=== PATIENT | female | born 1970 | race Caucasian/White ===

== ENCOUNTER → 2017-01-18 | Outpatient (CLI) | payer BC ==
[2005-08-09 08:00] VITALS: TEMP 97.5
[~2017-01-18] MED LIST: DARVOCET N 101 UDTAB PO; FLEXERIL5 MG PO; GREEN TEA; LEVAQUIN 5500 MG/TA1 PO; NO HOME MEDICATIONS; PREDNISONE10 MG PO
== END ==
LOC: MC.RAD 11:03
DX: Z12.31 Encounter for screening mammogram for malignant neoplasm of breast (principal)

== ENCOUNTER → 2018-02-05 | Outpatient (CLI) | payer BC ==
[2005-08-09 08:00] VITALS: TEMP 97.5
== END ==
LOC: MC.RAD 11:13
DX: Z12.31 Encounter for screening mammogram for malignant neoplasm of breast (principal)

== ENCOUNTER → 2019-02-15 | Outpatient (CLI) | payer BC ==
[2005-08-09 08:00] VITALS: TEMP 97.5
== END ==
LOC: MC.RAD 10:48
DX: Z12.31 Encounter for screening mammogram for malignant neoplasm of breast (principal)

== ENCOUNTER → 2020-03-06 | Outpatient (CLI) | payer BC ==
[2005-08-09 08:00] VITALS: TEMP 97.5
== END ==
LOC: MC.RAD 15:56
DX: Z12.31 Encounter for screening mammogram for malignant neoplasm of breast (principal); Z98.890 Other specified postprocedural states

== ENCOUNTER → 2021-03-08 | Outpatient (CLI) | payer BC ==
[2005-08-09 08:00] VITALS: TEMP 97.5
== END ==
LOC: MC.RAD 10:35
DX: Z12.31 Encounter for screening mammogram for malignant neoplasm of breast (principal)

== ENCOUNTER → 2022-04-05 | Outpatient (CLI) | payer BC ==
[2005-08-09 08:00] VITALS: TEMP 97.5
== END ==
LOC: MC.RAD 09:39
DX: Z12.31 Encounter for screening mammogram for malignant neoplasm of breast (principal); R92.0 Mammographic microcalcification found on diagnostic imaging of breast

== ENCOUNTER → 2022-04-11 | Outpatient (CLI) | payer BC ==
[2005-08-09 08:00] VITALS: TEMP 97.5
== END ==
LOC: MC.RAD 10:43
DX: R92.0 Mammographic microcalcification found on diagnostic imaging of breast (principal)

== ENCOUNTER 2022-04-24 13:54 | Emergency (ER) | payer BC ==
[~2022-04-24] VITALS: Ht 149.9 cm; Wt 94.5 kg
[2022-04-24 13:55] VITALS: TEMP 97.7
[2022-04-24] MEDS ORDERED: OXY IR5 MG PO (15:16)
[2022-04-24] MEDS ORDERED: ROXICODONE 55 MG/TAB PO (17:04)
[2022-04-24 19:02] VITALS: BP 161/99; PULSE 64
--- NOTE | 2022-04-26 17:00 | NUR ---
Hvac Designer follow up regarding patients visit here and at [facility] 1 week previous. It was the patients request to come to our ED on April 24, 2022, as her PCP, Dr. Ronald Mcnamara is in [place]. I called Dr. Lewis office and talked to Lul from his office, who shared that Inez does have a follow-up appointment there on May 02, 2022. They are aware of the patients 2 ED visits and will follow up with her. Amanda Rodriguez Hvac Designer MSN, DRAPERY MAKER-BC
== END 2022-04-24 19:05 | disposition home or self-care (01) ==
LOC: COL.ER 13:54
DX: M54.41 Lumbago with sciatica, right side (principal); Z88.5 Allergy status to narcotic agent; Z28.310 Unvaccinated for COVID-19
CPT/HCPCS: J1170

== ENCOUNTER → 2022-05-04 | Outpatient (CLI) | payer BC ==
[~2022-05-04] VITALS: Ht 149.9 cm; Wt 93.0 kg
[~2022-05-04] MED LIST changes: +FLEXERIL 1010 MG/TAB PO; +OXY IR5 MG PO; +ROXICODONE 55 MG/TAB PO
[2022-05-04 12:04] VITALS: BP 129/96; PULSE 85; TEMP 98.4
[2022-05-04 13:15] VITALS: BP 135/92; PULSE 88
== END ==
LOC: COL.RAD 11:33
DX: M51.36 Other intervertebral disc degeneration, lumbar region (principal)
CPT/HCPCS: J3301

== ENCOUNTER 2022-05-26 09:15 | Day surgery (SDC) | payer BC ==
[~2022-05-26] VITALS: Ht 149.9 cm; Wt 92.5 kg
[2022-05-26 10:25] VITALS: BP 148/94; PULSE 58; TEMP 96.8
[2022-05-26 11:05] VITALS: BP 148/94; PULSE 58; TEMP 96.8
[2022-05-26 11:20] VITALS: BP 155/97; PULSE 63
[2022-05-26 11:35] VITALS: BP 140/78; PULSE 66
--- NOTE | 2022-05-26 11:40 | NUR ---
1105 - PT arrives from procedure drowsy but oriented. PT assisted w/ ambulating from cart to chair 2:1. PT oriented to room and call faust, within reach. Monitors applied and vitals obtained. PT provided snack and drink. PT denies nausea and pain. PT is using call faust to watch TV. 1120 - Vitals obtained. Visitor was brought into room per PT request. PT has finished snack and drink; call faust remains within reach if needed. PT denies pain and nasuea. 1135 - Vitals obtained. PT expressed desire to be discharged. Call faust within reach.
--- NOTE | 2022-05-26 11:54 | NUR ---
1150 - IV discontinued. Catheter tip intact. Pressure bandage applied. No redness or swelling noted. DC instructions and educational material reveiwed with the PT who verbalized understanding and signed the related paperwork. PT refused RN assistance changing into personal belongings. Questions answered to PT satisfaction. Call faust remains within reach if needed.
[2022-05-26 11:55] VITALS: BP 148/94; PULSE 61; TEMP 97.8
--- NOTE | 2022-05-26 12:05 | NUR ---
1200 - PT dismissed from endo via wheelchair to the PT entrence by Meg NÚÑEZ. PT has DC packet and personal belongings and was transferred into the care of her step-dad, who is driving private car.
== END 2022-05-26 12:05 | disposition home or self-care (01) ==
LOC: SDCO 09:15
DX: Z12.11 Encounter for screening for malignant neoplasm of colon (principal); E66.01 Morbid (severe) obesity due to excess calories; Z86.16 Personal history of COVID-19; Z68.41 Body mass index [BMI] 40.0-44.9, adult
CPT/HCPCS: J2704; J3010; J7030

== ENCOUNTER → 2024-04-03 | Outpatient (CLI) | payer OTHER ==
[2005-08-09 08:00] VITALS: TEMP 97.5
== END ==
LOC: MC.RAD 13:58
DX: Z12.31 Encounter for screening mammogram for malignant neoplasm of breast (principal)